=== PATIENT | male | born 1980 | race Caucasian/White ===

== ENCOUNTER 2018-02-21 22:45 | Emergency (ER) | payer OTHER ==
--- NOTE | 2018-02-22 00:04 | EDPHY ---
H & P Stated Complaint: R thumb and toe injury Time Seen by Provider: 02/21/18 23:15 HPI/ROS: Chief complaint: Right thumb and left great toe injury History of present illness: This is a 37-year-old male who presents to the emergency department for a right thumb and left great toe injury. He states he tripped and fell, injuring these areas. It hurts to move both of these areas. No report of open wounds. No abnormal coolness or paresthesias. No other injuries reported. - Personal History Current Tetanus/Diphtheria Vaccine: Yes Current Tetanus Diphtheria and Acellular Pertussis (TDAP): Yes - Medical/Surgical History Hx Asthma: No Hx Chronic Respiratory Disease: No Hx Diabetes: No Hx Cardiac Disease: No Hx Renal Disease: No Hx Cirrhosis: No Hx Alcoholism: No Hx HIV/AIDS: No Hx Splenectomy or Spleen Trauma: No Other PMH: Denies - Social History Smoking Status: Never smoked - Physical Exam Exam: General: Alert, nontoxic Skin: No open wounds to the right thumb her left great toe. Musculoskeletal: He is able to move the right thumb in the PIP and MCP joint although sore. He can move the left toe although hurts. Vascular: Capillary refill brisk in the right thumb and left great toe. Neurologic: Sensation intact in the right hand and left foot. Constitutional: Initial Vital Signs Temperature (C) 36.7 C 02/21/18 23:04 Heart Rate 66 02/21/18 23:04 Respiratory Rate 16 02/21/18 23:04 Blood Pressure 152/83 H 02/21/18 23:04 O2 Sat (%) 94 02/21/18 23:04 O2 Delivery Mode Room Air Allergies/Adverse Reactions: Penicillins Allergy (Verified 02/21/18 23:07) Home Medications: Medication Instructions Recorded NK [No Known Home Meds] 02/21/18 Medical Decision Making - Diagnostics Imaging: I viewed and interpreted images myself Procedures: Procedure: Splint placement. A Velcro thumb spica splint was applied. After application of the splint I returned and re-examined the patient. The splint was adequately immobilizing the joint and distal to the splint the patient's circulation and sensation was intact. Procedure: Splint placement. A postop shoe splint was applied. After application of the splint I returned and re-examined the patient. The splint was adequately immobilizing the joint and distal to the splint the patient's circulation and sensation was intact. ED Course/Re-evaluation: Patient seen under the supervision of my secondary supervising physician Dr. Desiree Orellana. Patient presents after injuring his right thumb and left great toe. X-rays of the thumb are negative. X-rays left great toe show fracture. Both are splinted for comfort. He is discharged home. Home care is discussed. He is referred to Orthopedics for recheck. Return precautions are given. Departure - Departure Disposition: Home, Routine, Self-Care Clinical Impression: Injury of right thumb Qualifiers: Encounter type: initial encounter Qualified Code(s): S69.91XA - Unspecified injury of right wrist, hand and finger(s), initial encounter Toe fracture, left Qualifiers: Encounter type: initial encounter Toe: great toe Fracture type: closed Phalanx : proximal Fracture alignment: nondisplaced Qualified Code(s): S92.415A - Nondisplaced fracture of proximal phalanx of left great toe, initial encounter for closed fracture Condition: Good Instructions: Toe Fracture (ED), Finger Sprain (ED) Additional Instructions: Follow-up with orthopedics for continued evaluation and care next week Use ibuprofen 600 mg 3 times a day for the next 2-3 days for pain and swelling Ice the injury, 20 min on, 3 times daily for the next 3 days If symptoms worsen or new symptoms develop return to the emergency room for recheck Referrals: NONE *PRIMARY CARE P,. [Primary Care Provider] - As per Instructions Jesús Rodrigez MD [Medical Doctor] - As per Instructions
[2018-02-22 00:15] VITALS: BP 136/87
== END 2018-02-22 00:11 | disposition home or self-care (01) ==
DX: S69.91XA Unspecified injury of right wrist, hand and finger(s), initial encounter (principal); S92.415A Nondisplaced fracture of proximal phalanx of left great toe, initial encounter for closed fracture; W01.0XXA Fall on same level from slipping, tripping and stumbling without subsequent striking against object, initial encounter; Y99.8 Other external cause status
CPT/HCPCS: L3807; L4386